=== PATIENT | female | born 1940 | race Caucasian/White ===

== ENCOUNTER 2016-08-04 01:03 | Day surgery (SDC) | payer MEDICARE ==
[~2016-08-04] VITALS: Ht 165.1 cm; Wt 87.5 kg
[2016-08-04] VITALS (14 sets, daily range): BP systolic 141–172; BP diastolic 64–94; PULSE 60–105; RESP 13–21; O2SAT 94–100
[~2016-08-04 01:03] MED LIST: AMLO5TAB2 PO; CHOL400T PO; CYAN1TAB PO; DICL25TA PO; HYDR25TA4 PO; MAGN200T PO; METF500T4 PO; OMEP20CA11 PO; POTA10CA42 PO; [UNRECOGNIZED DRUG - CODE] PO
[2016-08-04 06:31] LABS: BASOPHILS % (AUTO) 0.4 % (0-3); MONOCYTES % (AUTO) 8.8 % (4-12); Mean Corpuscular Hemoglobin 29.9 pg (27.0-35.0); Mean Corpuscular Volume 88.3 fL (81-100); NEUTROPHILS % (AUTO) 58.9 % (40-74); Platelet Count 243 bil/L (150-400)
[2016-08-04 06:54] LABS: INR 0.96 ratio
[2016-08-04] MEDS ORDERED: MAGN400T39 PO (07:03)
[2016-08-04] MEDS ORDERED: METF500T4 PO (07:03)
[2016-08-04] MEDS ORDERED: VITA150T PO (07:03)
[2016-08-04] MEDS ORDERED: POTA20TA16 PO (07:03)
[2016-08-04] MEDS ORDERED: DICL75TA6 PO (07:03)
[2016-08-04] MEDS ORDERED: CHOL200047 PO (07:03)
[2016-08-04] MEDS ORDERED: CeFAZolin Inj 2 gm / 50mL D5W IV ONE (07:27)
[2016-08-04] MEDS ORDERED: 0.9% Sodium Chloride 1,000 ML IV PRN (07:37)
[2016-08-04] MEDS: 0.9% Sodium Chloride 1,000 ML IV SCH ×2 (07:45→17:56)
[2016-08-04] MEDS ORDERED: CeFAZolin Inj 2 GM in IV Premix 1 EACH IV ONE (07:51)
[2016-08-04] MEDS ORDERED: fentaNYL-PF 50 mCg/mL 2 mL Inj ONE (08:03)
[2016-08-04] MEDS ORDERED: 0.9% Sodium Chloride 250 ML ONE ×2 (08:03→17:28)
[2016-08-04] MEDS ORDERED: 0.9% Sodium Chloride 1,000 ML ONE (08:03)
[2016-08-04] MEDS ORDERED: Heparin 1,000 Unit/mL 10 mL Inj ONE (08:03)
[2016-08-04] MEDS ORDERED: 0.9% Sodium Chloride 500 ML ONE (08:04)
[2016-08-04] MEDS ORDERED: Bupivacaine-MPF 0.5% 30 mL Inj ONE (08:04)
[2016-08-04] MEDS ORDERED: Ondansetron 2 mg/mL 2 mL Inj IVPUSH PRN (09:20)
--- NOTE | 2016-08-04 11:19 | DRSVH ---
PROCEDURE: X-RAY CHEST ONE VIEW, PORTABLE ([id number]) INDICATIONS: For new leads placed TECHNIQUE: One view of the chest was acquired. COMPARISON: [facility], , CHEST 2 VIEW, 11/15/2012, 11:30. FINDINGS: Surgical changes and devices: Dual-chamber lead cardiac pacer present. Lungs and pleura: No pleural effusions or pneumothorax. Lungs are clear. Mediastinum: Mediastinal contours appear normal. Heart size is normal. Bones and chest wall: No suspicious bony lesions. Overlying soft tissues appear unremarkable. IMPRESSION: No immediate complications status post cardiac pacemaker placement. Dictated by: Georges Stewart [facility] Interpreted: Trinh Parks MD on 08/04/2016 at 11:18 Transcribed by: CORIN on 08/04/2016 at 11:19 Approved by: Trinh Parks MD, PhD on 08/04/2016 at 17:09
--- NOTE | 2016-08-04 12:00 | NUR ---
pt assisted out of bed to [facility] by Elva Garcia R.N.
--- NOTE | 2016-08-04 12:31 | NUR ---
pt tx to room 3020 in stable condition by Keshia Plummer R.N.Report given earlier to Conor Beckford R.N.
--- NOTE | 2016-08-04 12:36 | NUR ---
[place] [facility] [place] on [place] at 1230, AAOx3, vitals stable and in no apparent distress. Left arm in sling, patient to remain on bedrest until 1300 per LATOYA Stubbs. Left chest dressing CDI, no drainage noted. Tele a-paced at 66 per tech. Patient denies CP, pressure. Bed low and locked, call light in reach, care and frequent rounding ongoing.
--- NOTE | 2016-08-04 17:19 | PCM.CONPHA ---
Assessment/Plan Assessment/Plan ANTICOAGULATION MANAGEMENT BY PHARMACY -INDICATION: SICK SINUS SYNDROME -HOME DOSE: NEW START -CONCURRENT ANTICOAGULATION: -CRCL: 54.7 ML/MIN -COAG TRENDS: Date INR 0.96 PLAN: With recommendation from surgeon will give patient a ot dose of 4 mg tonight and continue to dose based on subsequent INRs Pharmacy appreciates consult and will continue to monitor. THANKS! Leia Groves PharmD Aug 04, 2016 17:18
[2016-08-04] MEDS: CeFAZolin Inj 1 GM in IV Premix 1 EACH IV SCH (17:31)
--- NOTE | 2016-08-04 19:00 | OP ---
[address] [address] OPERATIVE REPORT PATIENT: DEBORA DEVLIN : 1940 MR#: [id number] ADMIT: 08/04/2016 JOB ID: [id number] DATE OF SURGERY: 08/04/2016 PREOPERATIVE DIAGNOSIS(ES): Sick sinus syndrome. POSTOPERATIVE DIAGNOSIS(ES): Sick sinus syndrome. PROCEDURES PERFORMED: 1. Dual-chamber pacemaker implantation. 2. Left upper extremity venogram. 3. Fluoroscopy. SURGEON: Sam Bond MD. ICE CREAM SCOOPER: Prudencio Cintron. IMPLANTED DEVICES: 1. [employer] pulse generator, model [id number], serial #[id number]. 2. Right atrial lead [employer] [id number], 46 cm, serial #[id number]. 3. RV lead [employer], [id number], 52 cm, serial #[id number]. ANESTHESIA: Bolus dosing of Versed and fentanyl were administered for an appropriate level of sedation. INDICATION: The patient is a pleasant 76-year-old woman with a structurally normal heart, recent negative stress testing, sick sinus syndrome, and paroxysmal atrial fibrillation. After discussion of the risks and benefits of dual-chamber pacemaker implantation she opted to proceed. PROCEDURE DESCRIPTION: The patient was taken to the EP laboratory in a fasting, nonsedated state where she was prepped and draped in the usual sterile fashion. The left infraclavicular region was infiltrated with 40 cc of a 50/50 mixture of bupivacaine and lidocaine. Once adequate anesthesia had been achieved, a 3 cm transverse incision was performed 2 cm below the left clavicle. Dissection was carried down to the pectoralis fascia and a pocket was then fashioned using a combination of electrocautery and blunt dissection. Once adequate anesthesia had been achieved, and under venographic guidance, the left axillary vein was cannulated over the first rib with a micropuncture to deploy two, 0.035, 3 mm J guidewires. Over the first of these, an 8-Cymro tear-away sheath was advanced. Once guidewire was removed, an active fixation lead was advanced to the RV outflow tract as well as the RV apex. The lead was affixed in position using associated active fixation screw and connected to the external analyzer and demonstrated appropriately sensed R waves, impedance. Capture threshold was checked to 10 V and there was no evidence of diaphragmatic stimulation. Attention was now paid to placement of the right atrial lead. Over the other previously deployed J guidewire, another 8-Cymro tear-away sheath was advanced. Once the guidewire was removed, the active fixation lead was advanced to the right atrial appendage. It was affixed in position using its associated active fixation screw and was connected the external analyzer and demonstrated appropriately sensed P waves, impedance. Capture threshold was checked to 10 V and there was no evidence of diaphragmatic stimulation. Once the position and redundancy of both leads had been confirmed with multiple fluoroscopic views, the lead was anchored in the prepectoral fascia using the associated anchoring sleeves and two Ethibond sutures. The pocket was the copiously irrigated with bacitracin solution. The lead was connected to a generator. The generator was placed in the pocket and affixed to the floor of the pocket using 1-0 Ti-Cron suture. The incision was then closed with running layers of absorbable suture. The wound was dressed with skin adhesive and a small dressing. At the end of the procedure, all sponge, needle and instrument counts were correct. COMPLICATIONS: None. ESTIMATED BLOOD LOSS: Negligible. DEVICE MEASURED DATA: 1. Right atrial lead 4.1 mV, 550 ohms, 1.25 V at 0.4 msec. 1. RV lead greater than 12 mV, 660 ohms, 0.5 V at 0.4 msec. FINAL PARAMETERS: DDDR 60-130 beats per minute with VIP on. IMPRESSION: Successful dual-chamber pacemaker implantation. PLAN: 1. Stat portable chest x-ray. 2. PA and lateral chest x-ray in the morning. 3. Device interrogation. 4. IV Ancef through tomorrow. 5. Keflex 500 mg p.o. b.i.d. x7 days starting tomorrow. 6. Wound check in one week. 7. Initiate flecainide 50 mg twice daily, metoprolol succinate 25 mg twice daily and warfarin 4 mg daily. 8. New prescription to be given at discharge tomorrow. 9. INR check on Sunday. 10. Pacemaker check in one week with concomitant EKG. 11. Follow up with Carter Garcia in six weeks. ATTENDING STATEMENT: Sam Dsouza MD, electrophysiology attending, supervised and performed all aspects of this procedure.
[2016-08-04] MEDS: MeTOProlol XL 25 mg ER24 Tablet PO SCH (20:16)
[2016-08-05] MEDS: CeFAZolin Inj 1 GM in IV Premix 1 EACH IV SCH (00:30)
[2016-08-05 00:35] VITALS: BP 161/81; PULSE 60; RESP 16; O2SAT 95
[2016-08-05] MEDS: 0.9% Sodium Chloride 1,000 ML IV SCH (05:19)
[2016-08-05 05:35] VITALS: BP 158/88; PULSE 60; RESP 16; O2SAT 95
[2016-08-05 06:13] VITALS: PULSE 66
[2016-08-05 06:13] LABS: INR 0.98 ratio
[2016-08-05] MEDS ORDERED: Pantoprazole 40 mg ER24 Tablet PO SCH (06:30)
[2016-08-05] MEDS ORDERED: Potassium Chloride 20 mEq SR Tablet PO SCH (08:00)
[2016-08-05 08:46] VITALS: BP 145/82; PULSE 60; RESP 16; O2SAT 95
[2016-08-05] MEDS: MeTOProlol XL 25 mg ER24 Tablet PO SCH (09:18)
[2016-08-05 09:30] VITALS: PULSE 61
--- NOTE | 2016-08-05 10:24 | PCM.DIMED ---
Discharge Instructions Date of Service Aug 05, 2016 Dates of Hospitalization 08/04/2016 Discharge Diagnosis Discharge Diagnosis Sick sinus syndrome post Dual chamber pacemaker implantation Medication Instructions Please start taking flecainide 50 mg twice a day Metoprolol succinate 25 mg twice a day Keflex (cephalexin) 500 mg twice a day for one week Warfarin 4 mg daily, to be adjusted by cardiology/Coumadin clinic. Diet Heart Healthy Activity Other (avoid lifting more than 10 pounds or elevating her elbow higher than shoulder level for 1 month. Other activities as tolerated.) Patient Instructions Avoid lifting your elbow higher than your shoulder for one month. No lifting greater than 10 pounds for one month. No submersion in a tub to the pacemaker pocket site for 10 days. You may shower and allow the water to run over this area. You may wean yourself from the sling over the next few days as tolerated. Please watch for signs of infection that may include increased swelling, redness, tenderness, or increased drainage from the wound site. Watch for fever or any unusual symptoms of feeling ill. Call the office immediately if you have any questions or concerns. Follow-up plan We have you scheduled to follow up with Carter Garcia on 09/07/2016 at 9:30 AM in our [place] office. You will need to have your warfarin (Coumadin) level checked on Sunday. I had scheduled this in [place] for 1:45 however if you want to be seen in [place] please call our office back at [phone] to arrange for an appointment to be made in our [place] office. You need a device check next week. My office should be calling you to arrange this in our [place] office. Call the number above if you have not heard from them early next week. Follow-up with PCP in: Other (September 07 9:30 AM in [place]) Mid-level Provider (F9): Carter Garcia PA-C, Robert R PA-C Aug 05, 2016 10:21
[2016-08-05] MEDS ORDERED: METO25TA99 PO (10:43)
[2016-08-05] MEDS ORDERED: FLC50T PO (10:43)
--- NOTE | 2016-08-05 11:04 | PCM.DC.CAR ---
Discharge Summary Date of Service Aug 05, 2016 Date of Hospital Admission 08/04/2016 Date of Discharge: Aug 05, 2016 Providers: Admitting Physician: Primary Care Physician: Carter Mena MD Attending Physician: Sam Bond MD Diagnosis at Time of Discharge Sick sinus syndrome post Dual chamber pacemaker implantation Problems: Consultations: Patient was seen by Dr. Sam Bond for sick sinus syndrome and had dual-chamber permanent pacemaker implantation. Invasive Procedures: Implantation of [employer] pulse generator, model PM 2272, serial number [id number] Right atrial lead [employer] [id number], 46 cm, serial number [id number] RV lead [employer], [id number], 52 cm, serial number [id number]. Brief History and Physical: The patient is a pleasant 76-year-old woman with a structurally normal heart, recent negative stress testing, sick sinus syndrome, and paroxysmal atrial fibrillation. Patient claims she was resting comfortably overnight. She did have some mild transient epigastric pressure that passed. She has no shortness of breath cough. She denies pain down her left arm. No significant pain or swelling to her pocket site. On exam she is in no apparent distress, eyes are clear, chest is symmetric and normal respirations, lungs are clear bilaterally. Heart is regular rate and rhythm without significant murmur, rub or gallop. The incision site without significant signs of redness swelling or discharge. There is minimal tenderness. Left extremity is benign. Chest x-ray, leads appear intact there is no pneumothorax apparent. Device check this morning without alert. Hospital Course: Patient was admitted for implantation of a dual-chamber permanent pacemaker secondary to sick sinus syndrome. Procedure per Dr. Sam Bond. [employer] pulse generator placed to low left clavicular area with leads placed in right atrium and right.ventricle. Reports suggest patient tolerated the procedure well without complications. Patient had an uneventful night in the hospital. Examination shows no signs of infection to the pocket site. Chest x- ray without signs of pneumothorax. Lead placement appears intact. Patient was given instructions for new medications, activity limitations. Follow-up instructions discussed and to be settled. Discharge Medications Amlodipine (Amlodipine) 5 Mg Tablet 5 MG PO DAILY Cholecalciferol (Vitamin D3) (Vitamin D3) 2,000 Unit Capsule 2,000 UNIT PO DAILY Cyanocobalamin/FA/Pyridoxine (Av-Apolinar Fb Forte Tablet) 2 Mg-2.5 Mg-25 Mg Tablet 1 EACH PO DAILY Flecainide Acetate (Flecainide Acetate) 50 Mg Tablet 50 MG PO BID Magnesium Oxide (Magnesium) 400 Mg Tablet 400 MG PO DAILY Metformin (Metformin) 500 Mg Tablet 1,000 MG PO BID Metoprolol Succinate ER (Metoprolol Succinate ER) 25 Mg Tab.er.24h 25 MG PO BID Omeprazole (Omeprazole) 20 Mg Capsule.dr 20 MG PO DAILY Potassium Chloride (Potassium Chloride) 20 Meq Tab.er.prt 20 MEQ PO DAILY TAKE WITH FOOD Miscellaneous Medications B Comp/Ferrous Gluc/Lysin/Znox (Apetigen Plus Liquid) 12.5 Mg/15 Ml Liquid 12.5 MG PO Additional med instructions Please start taking flecainide 50 mg twice a day Metoprolol succinate 25 mg twice a day Keflex (cephalexin) 500 mg twice a day for one week Warfarin 4 mg daily, to be adjusted by cardiology/Coumadin clinic. Followup Plan Disposition: Patient doing well at time of follow-up examination at discharge. Follow-up plan We have you scheduled to follow up with Carter Garcia on 09/07/2016 at 9:30 AM in our [place] office. You will need to have your warfarin (Coumadin) level checked on Sunday. I had scheduled this in [place] for 1:45 however if you want to be seen in [place] please call our office back at [phone] to arrange for an appointment to be made in our [place] office. You need a device check next week. My office should be calling you to arrange this in our [place] office. Call the number above if you have not heard from them early next week. Discharge Activity: Other (avoid lifting more than 10 pounds or elevating her elbow higher than shoulder level for 1 month. Other activities as tolerated.) Patient Instructions Avoid lifting your elbow higher than your shoulder for one month. No lifting greater than 10 pounds for one month. No submersion in a tub to the pacemaker pocket site for 10 days. You may shower and allow the water to run over this area. You may wean yourself from the sling over the next few days as tolerated. Please watch for signs of infection that may include increased swelling, redness, tenderness, or increased drainage from the wound site. Watch for fever or any unusual symptoms of feeling ill. Call the office immediately if you have any questions or concerns. Patrick Elise PA-C Aug 05, 2016 10:45
--- NOTE | 2016-08-05 11:19 | NUR ---
Social Work-initial assessment/discharge: Data:See initial assessment. Pt is a 76 y/o female who was admitted for sick sinus syndrome per H&P. Pt's insurance is [employer] and PCP is Carter Mena MD. EMR reviewed. BECK met with pt at bedside to discuss discharge planning, SW role explained. Pt is alert and oriented x3. Pt resides at home alone in [place] where she remains independent with ADLS. Pt does not use any DME and drives. Pt has no HH or SNF history. Pt has no alf care or VA benefits. SW discussed DPOA/ advanced directive, pt confirms they have completed this, SW encouraged a copy to be brought into the hospital. Per RN notes ,pt has been up independent in her room. Pt is medically stable for discharge today. SW provided phone number and plan on white board in room. Pt's friend to provide transport home today. All updated and agreeable to plan. Assessment:Pt who is independent at baseline. plan:Pt to discharge home today via POV. No discharge needs identified. All updated and agreeable to plan. YOLY Waters Addendum: 08/05/16 at 1122 by HERNANDEZ QUINTERO Amended: Links added.
--- NOTE | 2016-08-05 11:43 | NUR ---
Discharge IV's discontinued x 2 fully intact. Discharge instructions explained to patient who verbalizes understanding and agrees to plan of care. Information provided as well on Warfarin. All personal belongings given to patient. Patient ambulated off of unit.
--- NOTE | 2016-08-05 13:16 | DRSVH ---
PROCEDURE: X-RAY CHEST, TWO VIEWS ([id number]) INDICATIONS: For new lead placement TECHNIQUE: 2 views of the chest were acquired. COMPARISON: [facility], CR, XR CHEST 1VW (PORTABLE), 08/04/2016, 9:42. [facility], CR, CHEST 2 VIEW, 11/15/2012, 11:30. FINDINGS: Surgical changes and devices: There is a left chest wall dual-lead pacemaker with the leads projectin g over the right atrium and right ventricle. Lungs and pleura: No pleural effusions or pneumothorax. Lungs are clear. Mediastinum: Mediastinal contours are normal. Heart size is normal. Bones and chest wall: No suspicious bony abnormalities. Soft tissues appear unremarkable. IMPRESSION: 1. Left chest wall dual-lead pacemaker appears in appropriate position. 2. No evidence of pneumothorax. Dictated by: Jerald Nowak M.D. on 08/05/2016 at 13:13 Approved by: Jerald Nowak M.D. on 08/05/2016 at 13:13
== END 2016-08-05 11:40 | disposition home or self-care (01) ==
LOC: SOUO 01:03 → MPC 12:43 → SOUO 08-05 11:40
PROVIDERS: ATTEND Internal Medicine Cardiovascular Disease
DX: I49.5 Sick sinus syndrome (principal); I48.0 Paroxysmal atrial fibrillation
CPT/HCPCS: 33208; 36415; 71010; 71020; 80048; 85025; 85610; 93005; 99152; 99153; C1769; C1785; C1892; C1898; J0690; J2250; J3010; J7030; J7040; J7050